=== PATIENT | male | born 1955 | race Caucasian/White ===

== ENCOUNTER → 2018-10-14 10:15 | Outpatient (CLI) | payer MEDICARE, OTHER, SELFPAY ==
[2018-10-14 11:36] LABS: Add Manual Diff / Slide Review NO; Basophils Absolute Auto 0 /uL (0-100); Basophils Percent Auto 0.5 % (0-2); Eosinophils Absolute Auto 100 /uL (0-450); Eosinophils Percent Auto 1.5 % (2-4); Hematocrit 50.1 % (41-53); Hemoglobin 16.8 g/dL (13.5-17.5); Lymphocytes Absolute Auto 1000 /uL (1100-4500); Lymphocytes Percent Auto 15.5 % (25-40); Mean Corpuscular HGB Conc 33.5 % (30-36); Mean Corpuscular Hemoglobin 29.1 PG (26-34); Mean Corpuscular Volume 86.9 fL (80-100); Monocytes Absolute Auto 500 /uL (0-900); Monocytes Percent Auto 7.6 % (3-14); Neutrophils Absolute Auto 4700 /uL (1500-7000); Neutrophils Percent Auto 74.9 % (50-75); Platelet Count 237 X10^3/uL (150-400); Red Blood Cell Count 5.76 X10^6/uL (4.5-5.9); Red Cell Distribution Width 13.7 % (11.6-14.8); White Blood Cell Count 6.3 X10^3/uL (4.5-11.0)
[2018-10-14 11:41] LABS: Alanine Aminotransferase 16 IU/L (21-72); Albumin Globulin Ratio 1.4 (1.0-2.8); Alkaline Phosphatase 69 U/L (38-126); Aspartate Aminotransferase 20 IU/L (17-59); BUN Creatinine Ratio 17.3 (6-22); Bilirubin Total 0.6 mg/dL (0.2-1.3); Blood Urea Nitrogen 19 mg/dL (9-20); Calcium 9.5 mg/dL (8.4-10.2); Carbon Dioxide 28 mmol/L (22-32); Chloride 105 mmol/L (98-107); Cholesterol 176 mg/dL (140-199); Estimated Glomerular Filt Rate > 60.0 mL/min (>60); Globulin 2.9 g/dL (1.7-4.1); Glucose 92 mg/dL (80-110); HDL Cholesterol 46 mg/dL (40-60); HEMOLYSIS < 15 (0-50); LDL Cholesterol Calculated 116 mg/dL (<100); Potassium 4.9 mmol/L (3.4-5.1); Sodium 141 mmol/L (137-145); Total Protein 6.9 g/dL (6.3-8.2); Triglycerides 68 mg/dL (35-150)
[2018-10-14 12:12] LABS: Prostate Specific Antigen Scrn 2.09 ng/mL (0.1-4.0); TSH w/ Reflex to FT4 3.44 uIU/mL (0.47-4.68)
[2018-10-14 12:47] LABS: HIV 1 & 2 Ab/Ag 4th Gen Combo NEGATIVE (NEGATIVE); Hep C Virus Ab w/Reflex Quant NEGATIVE s/c (NEGATIVE)
[2018-10-16 15:26] LABS: Hepatitis B Surf Ab Qualitativ Nonreactive (Nonreactive)
[2018-10-17 16:06] LABS: RPR Screen Nonreactive (Nonreactive)
[2018-10-18 15:47] LABS: HSV 1 IgM Screen Negative (Negative); HSV 2 IgM Screen Negative (Negative)
== END ==
PROVIDERS: Visit Provider Nurse Practitioner
DX: K92.2 Gastrointestinal hemorrhage, unspecified (principal); R63.4 Abnormal weight loss; Z13.29 Encounter for screening for other suspected endocrine disorder; Z12.5 Encounter for screening for malignant neoplasm of prostate; Z13.220 Encounter for screening for lipoid disorders; Z11.3 Encounter for screening for infections with a predominantly sexual mode of transmission
CPT/HCPCS: 36415; 80053; 80061; 84443; 85025; 86592; 86695; 86696; 86706; 86803; 87389; G0103

== ENCOUNTER → 2020-05-14 11:30 | Outpatient (CLI) | payer MEDICARE, OTHER, SELFPAY ==
[2020-05-14 12:04] LABS: Alanine Aminotransferase 18 IU/L (<50); Albumin 4.1 g/dL (3.5-5.0); Albumin Globulin Ratio 1.4 (1.0-2.8); Alkaline Phosphatase 71 U/L (38-126); Aspartate Aminotransferase 25 IU/L (17-59); BUN Creatinine Ratio 17.1 (6-22); Bilirubin Total 0.5 mg/dL (0.2-1.3); Blood Urea Nitrogen 20 mg/dL (9-20); Calcium 9.2 mg/dL (8.4-10.2); Carbon Dioxide 31 mmol/L (22-32); Chloride 103 mmol/L (98-107); Estimated Glomerular Filt Rate > 60.0 mL/min (>60); Glucose 107 mg/dL (80-110); HEMOLYSIS < 15 (0-50); Potassium 4.4 mmol/L (3.4-5.1); Sodium 137 mmol/L (137-145); Total Protein 7.1 g/dL (6.3-8.2)
[2020-05-14 14:33] LABS: Free T3, Triiodothyronine Free 3.35 pg/mL (2.77-5.27); Free T4, Direct Thyroxine 1.08 ng/dL (0.78-2.19)
[2020-05-14 14:47] LABS: Thyroid Stimulating Hormone 2.97 uIU/mL (0.47-4.68)
== END ==
PROVIDERS: PCP Nurse Practitioner; Referring Provider Nurse Practitioner; Visit Provider Nurse Practitioner
DX: I95.9 Hypotension, unspecified (principal); Z79.899 Other long term (current) drug therapy; E66.3 Overweight; B35.1 Tinea unguium
CPT/HCPCS: 36415; 80053; 84439; 84443; 84481

== ENCOUNTER 2020-11-10 13:31 | Emergency (ER) | payer MEDICARE, OTHER, SELFPAY ==
[2020-11-10 13:39] VITALS: PULSE 78; RESP 16; O2SAT 98
[2020-11-10 13:42] VITALS: BP 126/83; PULSE 67; RESP 17; TEMP 36.4; O2SAT 99; BMI 25.6
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
== END 2020-11-10 14:49 | disposition home or self-care (01) ==
PROVIDERS: Emergency Provider Physician Assistant; PCP Nurse Practitioner
DX: K40.90 Unilateral inguinal hernia, without obstruction or gangrene, not specified as recurrent (principal)
CPT/HCPCS: 99281

== ENCOUNTER → 2020-12-18 09:45 | Outpatient (CLI) | payer MEDICARE, OTHER, SELFPAY ==
[2020-12-18 13:34] LABS: COVID19 -Nasal RAPID Negative (Negative)
== END ==
PROVIDERS: PCP Nurse Practitioner; Visit Provider Specialist
DX: Z20.822 Contact with and (suspected) exposure to COVID-19 (principal); Z01.812 Encounter for preprocedural laboratory examination
CPT/HCPCS: 87635; C9803

== ENCOUNTER 2020-12-19 09:04 | Day surgery (SDC) | payer MEDICARE, OTHER, SELFPAY ==
[2020-12-11 15:01] VITALS: BMI 25.7
[2020-12-19] VITALS (9 sets, daily range): BP systolic 88–125; BP diastolic 54–85; PULSE 59–71; RESP 12–18; TEMP 36.1–36.5; O2SAT 90–98; BMI 25.7
[2020-12-19] MEDS: ACETAMINOPHEN 325 MG TABLET 975 MG PO (09:51)
[2020-12-19] MEDS: GABAPENTIN 300 MG CAPSULE PO (09:51)
--- NOTE | 2020-12-19 09:51 | PM.PREOP ---
Pre-operative Note COVID-19 COVID-19 status: Negative Result date/Date tested (Pos, Neg/Pending): 12/18/20 Interval Note History & Physical reviewed/Exam performed by Physician: Yes Changes to H&P: No
[2020-12-19] MEDS: LACTATED RINGERS 1,000 ML 42 ML IV (09:52)
[2020-12-19] MEDS: CEFAZOLIN 1 GM VIAL 2 GM IV (10:30)
--- NOTE | 2020-12-19 10:31 | SUR.OPER ---
Addendum entered by Libertad Cortés R.N. 12/19/20 11:11: Patients glasses placed into hospital provided glass case with patient label and placed into patients belongings bag in Pre-Op. Original Note: Supine on padded OR bed, head on gel donut. Pilow placed under patient's knees. arms secured on padded arm boards at <90 degrees abduction, legs uncrossed, safety belt at thigh, tape over blanket over lower legs.
[2020-12-19] MEDS: BUPIVACAINE 0.5% (PF) VIAL 30 ML INJ (10:54)
--- NOTE | 2020-12-19 11:40 | PM.OP.1 ---
Operative Date/Time/Diagnoses Date of procedure: 12/19/20 Time of procedure: 11:40 Pre-op diagnosis: Reducible left inguinal hernia Post-op diagnosis: same (Direct and indirect components) Procedure & Clinicians Procedure: Repair with plug and patch technique Same procedure as scheduled: Yes Indications: Symptomatic left inguinal hernia in a patient requesting repair Surgeon: Lincoln Pedersen Click Yes if Unassisted: Yes Anesthesia Type: General Operative Notes Findings: Indirect and direct components of an inguinal hernia Closure Type: primary Specimen(s): none sent Prosthetic devices, grafts, tissues, transplants, or devices: Medium plug and patch Estimated Blood Loss (mL): 5 Blood products transfused: none Procedure in detail: The patient was placed supine on the operating room table and underwent general LMA anesthesia. He was prepped and draped in the usual fashion. A transverse incision was made overlying the left internal ring and carried down to the level of the external oblique. The external oblique was opened parallel with its fibers through the external ring. The cord structures were elevated. The cremaster was opened proximally and search made for an indirect sac. One was identified and from surrounding structures. It was opened and found to have no contents. It was suture ligated at the level of the deep epigastric vessels. Local anesthetic was infiltrated beneath the tie and the distal portion transected and removed. The stump was allowed to retract. A medium plug was placed in the defect created and tacked into place with interrupted 0 Ethibond suture. The floor was examined and was found to be quite lax.. A patch was placed across the floor and tacked at the pubic tubercle, the posterior lamella of the anterior rectus sheath, the ilioinguinal ligament, and superior lateral to the cord. The opening was modified as necessary to prevent tight constriction of the cord. Sutures of 0 Tycron were used to secure the mesh. The external oblique was closed with a running 3 0 Vicryl. The subcu was closed with interrupted 4-0 Vicryl. The skin was closed with a running 4 0 Vicryl subcuticular stitch and Steri-Strips. Dressing was applied, the patient was awakened, and the patient was taken to the recovery area in good condition. Complications: none Post-operative Condition: stable Disposition: PACU
--- NOTE | 2020-12-19 11:48 | SUR.PHASEI ---
Received to PACU after general anesthesia. Oral airway in place, requiring jaw thrust. Report from [facility].
== END 2020-12-19 13:28 | disposition home or self-care (01) ==
PROVIDERS: PCP Nurse Practitioner; Referring Provider Specialist; Visit Provider Specialist
PROC: (CPT 49505; principal; 2020-12-19 10:15)
DX: K40.90 Unilateral inguinal hernia, without obstruction or gangrene, not specified as recurrent (principal)
CPT/HCPCS: 49505; C1781; J0690; J1100; J1885; J2405; J2704; J3010

== ENCOUNTER → 2022-10-16 09:52 | Outpatient (CLI) | payer MEDICARE, OTHER, SELFPAY ==
[2022-10-16 11:30] LABS: HEMOLYSIS < 15 (0-50)
[2022-10-16 11:38] LABS: Alanine Aminotransferase 19 IU/L (<50); Albumin 3.5 g/dL (3.5-5.0); Albumin Globulin Ratio 1.2 (1.0-2.8); Alkaline Phosphatase 64 U/L (38-126); Aspartate Aminotransferase 24 IU/L (17-59); BUN Creatinine Ratio 15.2 (6-22); Bilirubin Total 0.7 mg/dL (0.2-1.3); Blood Urea Nitrogen 17 mg/dL (9-20); Calcium 8.8 mg/dL (8.4-10.2); Carbon Dioxide 28 mmol/L (22-32); Chloride 103 mmol/L (98-107); Cholesterol 179 mg/dL (140-199); Estimated Glomerular Filt Rate > 60 mL/min (>60); Globulin 2.9 g/dL (1.7-4.1); Glucose 98 mg/dL (80-110); HDL Cholesterol 48 mg/dL (40-60); LDL Cholesterol Calculated 119 mg/dL (<100); Potassium 4.6 mmol/L (3.4-5.1); Sodium 136 mmol/L (137-145); Total Protein 6.4 g/dL (6.3-8.2); Triglycerides 58 mg/dL (35-150)
[2022-10-16 12:07] LABS: Thyroid Stimulating Hormone 3.44 uIU/mL (0.47-4.68)
[2022-10-16 12:16] LABS: Free T4, Direct Thyroxine 1.04 ng/dL (0.78-2.19)
[2022-10-16 12:31] LABS: Prostate Specific Antigen Scrn 1.93 ng/mL (0.1-4.0)
== END ==
PROVIDERS: PCP Nurse Practitioner; Referring Provider Nurse Practitioner; Visit Provider Nurse Practitioner
DX: E78.00 Pure hypercholesterolemia, unspecified (principal); Z12.5 Encounter for screening for malignant neoplasm of prostate; B35.1 Tinea unguium; Z79.899 Other long term (current) drug therapy
CPT/HCPCS: 36415; 80053; 80061; 84439; 84443; 84481; G0103

== ENCOUNTER 2022-12-09 11:27 | Day surgery (SDC) | payer MEDICARE, OTHER, SELFPAY ==
[2022-12-09 11:38] VITALS: BP 106/72; PULSE 71; RESP 12; TEMP 36.5; O2SAT 96; BMI 26.4
[2022-12-09] MEDS: LACTATED RINGERS 1,000 ML 42 ML IV (11:53)
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
--- NOTE | 2022-12-09 12:47 | PM.OP.COLON ---
Operative Date/Time/Diagnoses Date of procedure: 12/09/22 Time of procedure: 12:47 Pre-op diagnosis: Personal history of colonic polyps Procedure & Clinicians Study performed: Colonoscopy Same procedure as scheduled: Yes Indications: 67-year-old man history of colonic polyps here for screening colonoscopy Surgeon: Warner Salomon Procedure Notes Procedure in detail: The history and physical was performed/updated and the patient is ASA class is 1. The procedure was discussed in detail with the patient. Potential risks complications including infection, bleeding, missed diagnosis, perforation, need for surgery, and were explained. Their questions were answered and informed consent was obtained. Patient was brought to the procedure room and placed standard monitoring equipment. The patient's vital signs were monitored continuously throughout the entire procedure. Prior to starting time-out was performed. The patient was placed in the left lateral recumbent position. Procedural sedation was administered by anesthesia. Examination began with a thorough inspection of the perianal area there was no evidence of fissures, fistulae, external hemorrhoids or cutaneous malignancy. The colonoscopy scope was then placed into the anal canal and was advanced to the cecum, which was identified by the ileocecal valve, the appendiceal orifice and the confluence of the taenia. The scope was then slowly withdrawn examining colon thoroughly in all directions, irrigating it of any residual stool. No masses or polyps. Mild diverticulosis of the sigmoid colon The patient tolerated the procedure well. They will be discharged once criteria are met. The prep was of good/excellent quality. The withdrawl time was 6 minutes. Specimen(s): none sent Impression: Normal colonoscopy Post-procedure Plan for aftercare: No need for further colonoscopy unless symptomatic Disposition: same day surgery
[2022-12-09 13:14] VITALS: BP 94/60; PULSE 69; RESP 18; TEMP 36.2; O2SAT 93
[2022-12-09 13:19] VITALS: BP 92/58; PULSE 66; RESP 18; O2SAT 92
[2022-12-09 13:23] VITALS: BP 93/45; PULSE 76; RESP 16; O2SAT 97
[2022-12-09 13:30] VITALS: BP 114/80; PULSE 73; RESP 18; TEMP 36.8; O2SAT 93
== END 2022-12-09 14:06 | disposition home or self-care (01) ==
PROVIDERS: PCP Nurse Practitioner; Referring Provider Surgery; Visit Provider Surgery
PROC: 0DJD8ZZ Inspection of Lower Intestinal Tract, Via Natural or Artificial Opening Endoscopic (ICD-10-PCS; CPT 45378; principal; 2022-12-09 12:30)
DX: Z12.11 Encounter for screening for malignant neoplasm of colon (principal); Z86.010 Personal history of colon polyps; K57.30 Diverticulosis of large intestine without perforation or abscess without bleeding
CPT/HCPCS: G0105; J2704

== ENCOUNTER → 2023-10-26 11:37 | Outpatient (CLI) | payer MEDICARE, OTHER, SELFPAY ==
[2023-10-26 12:41] LABS: Alanine Aminotransferase 14 IU/L (<50); Albumin 4.1 g/dL (3.5-5.0); Albumin Globulin Ratio 1.5 (1.0-2.8); Alkaline Phosphatase 72 U/L (38-126); Aspartate Aminotransferase 25 IU/L (17-59); Bilirubin Total 0.7 mg/dL (0.2-1.3); Blood Urea Nitrogen 15 mg/dL (9-20); Calcium 9.1 mg/dL (8.4-10.2); Carbon Dioxide 25 mmol/L (22-32); Chloride 108 mmol/L (98-107); Cholesterol 160 mg/dL (140-199); Estimated Glomerular Filt Rate > 60 mL/min (>60); Globulin 2.8 g/dL (1.7-4.1); Glucose 91 mg/dL (80-110); HDL Cholesterol 40 mg/dL (40-60); HEMOLYSIS < 15 (0-50); LDL Cholesterol Calculated 98 mg/dL (<100); Magnesium 2.2 mg/dL (1.6-2.3); Potassium 4.5 mmol/L (3.4-5.1); Sodium 138 mmol/L (137-145); Total Protein 6.9 g/dL (6.3-8.2); Triglycerides 111 mg/dL (35-150)
[2023-10-26 12:54] LABS: Free T3, Triiodothyronine Free 3.51 pg/mL (2.77-5.27); Free T4, Direct Thyroxine 0.99 ng/dL (0.78-2.19)
[2023-10-26 13:04] LABS: Prostate Specific Antigen Scrn 6.03 ng/mL (0.1-4.0)
[2023-10-26 13:07] LABS: Thyroid Stimulating Hormone 3.14 uIU/mL (0.47-4.68)
== END ==
PROVIDERS: PCP Nurse Practitioner; Referring Provider Nurse Practitioner; Visit Provider Nurse Practitioner
DX: Z79.899 Other long term (current) drug therapy (principal); Z12.5 Encounter for screening for malignant neoplasm of prostate; E78.00 Pure hypercholesterolemia, unspecified; R25.2 Cramp and spasm
CPT/HCPCS: 36415; 80053; 80061; 83735; 84439; 84443; 84481; G0103

== ENCOUNTER → 2023-11-04 07:22 | Outpatient (CLI) | payer MEDICARE, OTHER, SELFPAY ==
--- NOTE | 2023-11-04 07:25 | DI.US.S_ITS ---
PROCEDURE: US ABDOMEN LIMITED INDICATIONS: chronic pain 03/25 in area of post left lower quadrant hernia repair 2020 TECHNIQUE: Limited ultrasound of the region of interest of the left groin was performed. COMPARISON: None available at the time of dictation. FINDINGS/IMPRESSION: No ultrasound identifiable hernia or other soft tissue abnormality seen in the left lower quadrant/left groin region of interest. A probable mesh noted. The mesh limits evaluation of this area with ultrasound secondary to shadowing artifact. Dictated by: Lincoln Polo M.D. on 11/04/2023 at 11:26 Approved by: Lincoln Polo M.D. on 11/04/2023 at 11:30
== END ==
PROVIDERS: PCP Nurse Practitioner; Referring Provider Nurse Practitioner; Visit Provider Nurse Practitioner
DX: G89.28 Other chronic postprocedural pain (principal); Z98.890 Other specified postprocedural states; Z87.19 Personal history of other diseases of the digestive system
CPT/HCPCS: 76705

== ENCOUNTER → 2023-12-17 08:04 | Outpatient (CLI) | payer MEDICARE, OTHER, SELFPAY | PROVIDERS: PCP Family Medicine; Referring Provider Urology; Visit Provider Urology | DX: R97.20 Elevated prostate specific antigen [PSA] (principal) | CPT/HCPCS: 36415; 84153; 84154 ==

== ENCOUNTER → 2024-06-11 09:29 | Outpatient (CLI) | payer MEDICARE, OTHER, SELFPAY ==
[2024-06-12 07:40] LABS: PSA Free % 19.3 % (.); PSA, Total 1.4 ng/mL (0.0-4.0)
== END ==
LOC: LAB 09:31
PROVIDERS: PCP Family Medicine; Referring Provider Urology; Visit Provider Urology
DX: R97.20 Elevated prostate specific antigen [PSA] (principal)
CPT/HCPCS: 36415; 84153; 84154